=== PATIENT | female | born 1990 | race Hispanic/Latino ===

== ENCOUNTER 2022-01-19 08:22 | Emergency (ER) | payer SELFPAY | END 2022-01-19 09:14 | disposition home or self-care (01) | LOC: ERS 08:22 | DX: T63.461A Toxic effect of venom of wasps, accidental (unintentional), initial encounter (principal); L03.114 Cellulitis of left upper limb; E11.9 Type 2 diabetes mellitus without complications; E78.5 Hyperlipidemia, unspecified; Z79.899 Other long term (current) drug therapy | CPT/HCPCS: 99283 ==

== ENCOUNTER 2022-01-28 18:50 | Emergency (ER) | payer SELFPAY ==
[2022-01-28] MEDS ORDERED: Metoclopramide HCl 10 MG/2 ML VIAL ONE (19:40)
[2022-01-28 20:08] LABS: Bilirubin Negative (Negative); Blood, Urine Negative (Negative); Clarity Clear (Clear); Glucose, Urine (Dipstick) Greater than 1000 mg/dL (Negative); Ketone, Urine Negative (Negative); Leukocyte Negative Leu/uL (Negative); Nitrite Negative (Negative); Protein, Urine (Dipstick) Negative (Neg-Trace); Specific Gravity, Urine 1.041 (1.002-1.036); Urobilinogen Normal mg/dL (Less than 2); pH, Urine 5.5 (5.0-9.0)
[2022-01-28 20:18] LABS: #Basophils 0.1 thou/uL (0.0-0.2); #Eosinphils 0.1 thou/uL (0.0-0.7); #Lymphocytes 3.7 thou/uL (1.20-3.40); #Monocytes 0.6 thou/uL (0.11-0.59); #Neutrophils 8.6 thou/uL (1.40-6.50); %Basophils 0.5 % (0.0-1.0); %Eosinophils 0.9 % (0.0-10.0); %Lymphocytes 28.2 % (21.0-51.0); %Monocytes 4.5 % (0.0-10.0); %Neutrophils 65.8 % (42.0-75.0); Hemoglobin 11.5 g/dL (12.0-16.0); Mean Corpuscular HGB CONC 31.4 g/dL (32.0-36.0); Mean Corpuscular Hemoglobin 26.4 pg (27.0-31.0); Mean Platelet Volume 6.6 fL (7.4-10.4); Platelet Count 469 thou/uL (130-400); RBC Distribution Width 12.3 % (11.5-14.5); Red Blood Cell (RBC) Count 4.34 mill/uL (4.20-5.40); White Blood Cell (WBC) Count 13.1 thou/uL (4.8-10.8)
[2022-01-28 20:41] LABS: ALT (SGPT) 20 U/L (8-55); AST (SGOT) 11 U/L (5-34); Albumin 3.4 g/dL (3.5-5.0); Alkaline Phosphatase 92 U/L (40-110); Anion Gap 12 mmol/L (10-20); BUN (Urea Nitrogen) 10 mg/dL (7.0-18.7); Bilirubin, Total 0.2 mg/dL (0.2-1.2); Calc. Creatinine Clearance 0 mL/min (70-130); Calcium 8.5 mg/dL (7.8-10.44); Carbon Dioxide 25 mmol/L (22-29); Chloride 106 mmol/L (98-107); Glucose 217 mg/dL (70-105); Potassium 3.7 mmol/L (3.5-5.1); Protein, Total 6.4 g/dL (6.0-8.3); Sodium 139 mmol/L (136-145)
== END 2022-01-28 21:03 | disposition home or self-care (01) ==
LOC: ERS 18:50
DX: E11.65 Type 2 diabetes mellitus with hyperglycemia (principal); B34.9 Viral infection, unspecified; E78.5 Hyperlipidemia, unspecified
CPT/HCPCS: 36415; 36416; 71045; 80053; 81003; 85025; 87804; 93005; 96365; J2765